=== PATIENT | male | born 1955 | race Caucasian/White ===

== ENCOUNTER → 2017-05-09 | Outpatient (CLI) | payer BC ==
--- NOTE | 2017-05-10 04:12 | REP ---
Clinical: Left lower extremity ulcer. Venous stasis. Technique: Wang scale and color Doppler evaluation using linear high frequency transducer followed by reflux evaluation. Findings: Ultrasound examination of the left lower extremity deep venous structures from the common femoral vein to the popliteal vein demonstrates normal compressibility flow and wave patterns in response to respiration and augmentation. There is no evidence for deep venous thrombosis. Evaluation for reflux demonstrates moderate reflux through the deep venous system including common femoral vein, superficial femoral vein and popliteal vein. Reflux identified through the greater saphenous vein including via large collateral vessel noted from the mid greater saphenous vein extending caudally to the mid medial calf. Reflux of the proximal greater saphenous vein at the saphenofemoral junction with a diameter of 13.6 mm and duration of 6.8 seconds. Reflux through the mid the greater saphenous vein with a diameter of 6.4 mm and duration of 6.2 seconds. Reflux through the distal greater saphenous vein at the knee with a diameter of 2.6 mm and duration of 4.1 seconds. Impression: No evidence for deep venous thrombosis. Reflux via the deep venous system as well as greater saphenous vein and collaterals as described above. Signed by Ricky Briceno MD 05/10/2017 04:04 A
== END ==
LOC: M RAD 09:59
PROVIDERS: ATTEND Surgery
DX: L97.822 Non-pressure chronic ulcer of other part of left lower leg with fat layer exposed (principal)

== ENCOUNTER → 2017-06-14 | Outpatient (CLI) | payer BC ==
--- NOTE | 2017-06-14 23:25 | ECGEPIP ---
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 Electronically Signed On 06-14-2017 23:24:31 EDT by Julio Soto
== END ==
LOC: M EKG 09:49
PROVIDERS: ATTEND Anesthesiology
DX: Z01.818 Encounter for other preprocedural examination (principal); R94.31 Abnormal electrocardiogram [ECG] [EKG]

== ENCOUNTER 2017-06-22 13:06 | Day surgery (SDC) | payer BC ==
[~2017-06-22] VITALS: Ht 193 cm; Wt 136.1 kg
[2017-06-22] MEDS ORDERED: LR 1,000 ML IV SCH ×3 (13:15→15:15)
[2017-06-22] MEDS ORDERED: LIDOCAINE W/EPINEPHRINE 1% 20ML VIAL As Ordered ONE (13:43)
[2017-06-22] MEDS ORDERED: LIDOCAINE 1% SDV INJ 30 ML VIAL As Ordered ONE (13:43)
[2017-06-22] MEDS ORDERED: MIDAZOLAM INJ 2 MG/2 ML VIAL (J2250) As Ordered ONE (14:22)
[2017-06-22] MEDS ORDERED: fentaNYL 100 MCG/2 ML INJECTION (J3010) As Ordered ONE (14:22)
[2017-06-22] MEDS ORDERED: PROPOFOL 500 MG/50 ML VIAL As Ordered ONE (14:22)
[2017-06-22] MEDS ORDERED: dexameTHASONE 4 MG/ML 1ML VIAL (J1100) As Ordered ONE (14:27)
[2017-06-22] MEDS ORDERED: KETOROLAC 60 MG/2 ML VIAL (J1885) As Ordered ONE (14:27)
[2017-06-22] MEDS ORDERED: ONDANSETRON 4MG/2ML VIAL (J2405) As Ordered ONE (14:30)
[2017-06-22] MEDS ORDERED: PROPOFOL 200 MG/20 ML VIAL As Ordered ONE (14:30)
[2017-06-22] MEDS ORDERED: ONDANSETRON 4MG/2ML VIAL (J2405) IV PRN (15:15)
[2017-06-22] MEDS ORDERED: fentaNYL 100 MCG/2 ML INJECTION (J3010) IV PRN (15:15)
[2017-06-22 15:40] VITALS: BP 138/89
--- NOTE | 2017-07-04 09:42 | RO ---
DATE OF PROCEDURE: 06/22/2017 PREOPERATIVE DIAGNOSES: Left lower extremity varicose veins. Left lower extremity valvular venous insufficiency. Nonhealing left lower extremity venous stasis ulcer. POSTOPERATIVE DIAGNOSES: Left lower extremity varicose veins. Left lower extremity valvular venous insufficiency. Nonhealing left lower extremity venous stasis ulcer. PROCEDURE: Left greater saphenous vein radiofrequency ablation. Ultrasound guided left greater saphenous vein cannulation. SURGEON: Dr. Gian Victor DRUG INSPECTOR: None. ANESTHESIA: Local MAC. ESTIMATED BLOOD LOSS: 20 mL. INTRAVENOUS FLUIDS: 400 mL. HEPARIN: None. COMPLICATIONS: None. DRAINS: None. SPECIMENS: None. IMPLANTS: None. INDICATION: The patient is a 62-year-old male with nonhealing left lower extremity venous stasis ulcer which has been slow to heal who underwent evaluation and was noted to have greater saphenous vein valvular insufficiency. The patient also has varicose veins in the left lower extremity which are small, but uncomfortable. The patient was evaluated and felt to be a good candidate for a left greater saphenous vein radiofrequency ablation. The risks, benefits and alternative treatment options were discussed with the patient. Benefits included, but were not limited to, relief of symptoms and increased potential for wound healing and prevention of future wounds in the left lower extremity secondary to his venous valvular insufficiency. Alternative treatment options included, but were not limited to, no intervention. Risks included, but were not limited to, infection, bleeding, renal failure requiring hemodialysis, burning or scarring of the skin, possible need for open surgical intervention, cerebrovascular accident, myocardial infarction, pulmonary embolus, deep vein thrombosis (DVT), loss of limb, loss of life, and poor outcome. Patient's questions were answered. The patient voices understanding of these risks, benefits and alternative treatment options. The patient accepts these risks and agrees to proceed with a left greater saphenous vein radiofrequency ablation. PROCEDURE: The patient was taken to the operating room and placed supine on the operating room table and the left lower extremity was prepped and draped in a standard surgical fashion. A time out was then conducted by myself and the team members in the room confirming the correct procedure, patient and laterality. The ultrasound was then used to identify the greater saphenous vein along the course of the left lower extremity and the ultrasound was used to guide cannulation of the left greater saphenous vein in the below knee region with concurrent real time ultrasound visualization of entry of the needle into the greater saphenous vein. The micropuncture wire was then advanced through the micropuncture needle. A hard copy image of the ultrasound guided cannulation was performed. The micropuncture needle was then up sized to a micropuncture sheath. A J-wire was advanced through the micropuncture sheath which was up sized to a 7 [place] sheath. The radiofrequency ablation catheter was advanced through the greater saphenous vein and placed 2 cm distal to the saphenofemoral junction under ultrasound guidance. Tumescent solution was then injected circumferential around the greater saphenous vein from the saphenofemoral junction to the entry site in the below knee region on the left lower extremity. After which, the greater saphenous vein was then ablated using the radiofrequency ablation catheter from 2 cm distal to the saphenofemoral junction to the entry site in the below knee region. Once this was completed, catheters and sheaths were removed, dressings were applied, and Edgar wrap was applied from the base of toes to the inguinal region. All instrument, sponge and needle counts were correct at the end of the case. There were no complications. Dr. Victor was present for and directed the entire case. The patient tolerated the procedure well and was transferred to the recover room and then subsequently discharged home in stable condition.
== END 2017-06-22 15:45 | disposition home or self-care (01) ==
LOC: M SDC 13:06
PROVIDERS: ATTEND Surgery Vascular Surgery
DX: I83.228 Varicose veins of left lower extremity with both ulcer of other part of lower extremity and inflammation (principal); L97.829 Non-pressure chronic ulcer of other part of left lower leg with unspecified severity; E66.9 Obesity, unspecified; F17.210 Nicotine dependence, cigarettes, uncomplicated; Z79.82 Long term (current) use of aspirin
CPT/HCPCS: 36475; J1100; J1885; J2250; J2405; J3010

== ENCOUNTER → 2017-07-05 | Outpatient (CLI) | payer BC ==
--- NOTE | 2017-07-05 08:27 | REP ---
Left lower extremity deep vein duplex ultrasound: The deep veins demonstrate normal compression, normal Doppler color flow and normal Doppler waveforms with respiration augmentation pulled levels from the popliteal vein to the common femoral vein. There is no deep vein thrombus in the left lower extremity. The the patient has had radio frequency ablation of the left greater saphenous vein. There is diffuse thrombus throughout the greater saphenous vein as a consequence. Signed by Emanuel Lancaster MD 07/05/2017 08:18 A
== END ==
LOC: M RAD 06:55
PROVIDERS: ATTEND Surgery Vascular Surgery
DX: I87.393 Chronic venous hypertension (idiopathic) with other complications of bilateral lower extremity (principal)

== ENCOUNTER → 2024-12-12 | Outpatient (CLI) | payer MEDICARE ==
[~2024-12-12] MED LIST: ECOT81TA5 PO
== END ==
LOC: M ONCR 13:34
PROVIDERS: ATTEND General Practice
DX: C44.42 Squamous cell carcinoma of skin of scalp and neck (principal); Z87.891 Personal history of nicotine dependence; Z72.89 Other problems related to lifestyle; Z79.82 Long term (current) use of aspirin

== ENCOUNTER → 2024-12-12 | Outpatient (REF) | payer MEDICARE | LOC: M SFHCDERM 08:32 | PROVIDERS: ATTEND Dermatology | DX: C44.42 Squamous cell carcinoma of skin of scalp and neck (principal) ==

== ENCOUNTER 2025-01-07 09:06 | Outpatient (RCR) | payer MEDICARE ==
[~2025-01-07 09:06] MED LIST changes: +TRIA1CR80 TOP
== END 2025-01-13 ==
LOC: M ONCR 09:06
PROVIDERS: ATTEND General Practice
DX: Z51.0 Encounter for antineoplastic radiation therapy (principal); C44.42 Squamous cell carcinoma of skin of scalp and neck

== ENCOUNTER → 2025-02-07 | Outpatient (CLI) | payer MEDICARE ==
[~2025-02-07] MED LIST changes: +BACT800T5 PO
== END ==
LOC: M ONCR 08:59
PROVIDERS: ATTEND General Practice
DX: S91.002A Unspecified open wound, left ankle, initial encounter (principal); L03.116 Cellulitis of left lower limb; C44.42 Squamous cell carcinoma of skin of scalp and neck; Y92.013 Bedroom of single-family (private) house as the place of occurrence of the external cause; Y93.9 Activity, unspecified; Y99.9 Unspecified external cause status

== ENCOUNTER → 2025-06-27 | Outpatient (CLI) | payer MEDICARE ==
[~2025-06-27] MED LIST changes: +DEXA4TA PO; +OXYC-517 PO
== END ==
LOC: M ONCR 13:09
PROVIDERS: ATTEND General Practice
DX: C44.42 Squamous cell carcinoma of skin of scalp and neck (principal); Z92.3 Personal history of irradiation; Z87.891 Personal history of nicotine dependence; Z72.89 Other problems related to lifestyle; Z79.82 Long term (current) use of aspirin
CPT/HCPCS: 11102; 42400; 87070; 87077; 87186; 88305; G0463

== ENCOUNTER → 2025-07-15 | Outpatient (CLI) | payer MEDICARE ==
[~2025-07-15] MED LIST changes: +AMOX875T2 PO; +CLEO300C2 PO; +DOXY100T PO; +KETO-204 PO; +ONDA-84 PO
== END ==
LOC: M PLARAD 14:40
PROVIDERS: ATTEND General Practice
DX: C44.42 Squamous cell carcinoma of skin of scalp and neck (principal)

== ENCOUNTER 2025-07-18 15:52 | Inpatient (IN) | payer MEDICARE ==
[~2025-07-18] VITALS: Ht 193 cm; Wt 122.0 kg
[~2025-07-18 15:52] MED LIST changes: -AMOX875T2 PO; -DOXY100T PO; -KETO-204 PO
[2025-07-18 16:48] VITALS: BP 126/82; TEMP 97.5; O2SAT 93
[2025-07-18] MEDS ORDERED: SENNA 8.6 MG TAB PO PRN (17:45)
[2025-07-18] MEDS ORDERED: MORPHINE 4 MG/ML 1 ML VIAL IV PRN (17:45)
[2025-07-18] MEDS: PANTOPRAZOLE 40MG VIAL IV SCH (18:26)
[2025-07-18] MEDS: MORPHINE 4 MG/ML 1 ML VIAL IV PRN (18:26)
[2025-07-18] MEDS: ACETAMINOPHEN *IV* 1,000 MG in IV 1 EA IV SCH (18:27)
[2025-07-18] MEDS: LR 1,000 ML IV SCH (18:27)
[2025-07-18] MEDS ORDERED: DEXA4TA PO (19:27)
[2025-07-18] MEDS ORDERED: OXYC-517 PO (19:27)
[2025-07-18] MEDS ORDERED: HOME MED LIST COMPLETE! XX SCH (19:30)
[2025-07-18 20:13] VITALS: BP 128/79; TEMP 97.7; O2SAT 93
[2025-07-18] MEDS: KETOROLAC 30 MG/ML 1 ML VIAL IV SCH (20:13)
[2025-07-19 04:20] VITALS: BP 110/54; TEMP 97.2; O2SAT 92
[2025-07-19 05:53] LABS: PLATELET COUNT, AUTOMATED 252 10^3/uL (150-450)
[2025-07-19 06:19] LABS: CALCIUM LEVEL 8.5 MG/DL (8.3-10.6); CARBON DIOXIDE LEVEL 28 MMOL/L (20-31); CHLORIDE LEVEL 96 MMOL/L (98-107); CREATININE FOR GFR 0.91 MG/DL (0.70-1.30); GLOMERULAR FILTRATION RATE > 90.0 (>49); POTASSIUM SERUM 4.2 MMOL/L (3.5-5.1); SODIUM LEVEL 131 MMOL/L (136-145)
[2025-07-19] MEDS: ENOXAPARIN 40 MG/0.4 ML SYRINGE (J1650 PER 10MG) SC SCH (10:35)
[2025-07-19 11:58] VITALS: BP 130/62; TEMP 97.2; O2SAT 93
[2025-07-19 13:11] LABS: ALT/SGPT 71 U/L (7.0-40); AST/SGOT 17 U/L (<34)
[2025-07-19 19:43] VITALS: BP 128/61; TEMP 97.9; O2SAT 95
[2025-07-19] MEDS ORDERED: MIRALAX *UNIT DOSE* 17 GM PACKET PO PRN (21:20)
[2025-07-19] MEDS ORDERED: ISOVUE-370 76% 100 ML VIAL As Ordered ONE (21:33)
[2025-07-19] MEDS: DOXYCYCLINE HYCLATE 100 MG TABLET PO SCH (22:32)
[2025-07-19] MEDS: AUGMENTIN 875 MG TAB PO SCH (22:32)
[2025-07-20 03:49] VITALS: BP 126/62; TEMP 97.7; O2SAT 91
[2025-07-20 06:31] LABS: PLATELET COUNT, AUTOMATED 287 10^3/uL (150-450)
[2025-07-20 06:56] LABS: CALCIUM LEVEL 7.9 MG/DL (8.3-10.6); CARBON DIOXIDE LEVEL 27 MMOL/L (20-31); CHLORIDE LEVEL 99 MMOL/L (98-107); CREATININE FOR GFR 0.85 MG/DL (0.70-1.30); GLOMERULAR FILTRATION RATE > 90.0 (>49); POTASSIUM SERUM 4.0 MMOL/L (3.5-5.1); SODIUM LEVEL 129 MMOL/L (136-145)
[2025-07-20 12:11] VITALS: BP 104/57; TEMP 97.3; O2SAT 91
[2025-07-20] MEDS ORDERED: KETO-204 PO (12:32)
[2025-07-20] MEDS ORDERED: AMOX875T2 PO (12:32)
[2025-07-20] MEDS ORDERED: DOXY100T PO (12:32)
[2025-07-23] MEDS ORDERED: ONDA-84 PO (09:26)
[2025-07-27] MEDS ORDERED: KETO-204 PO (11:50)
== END 2025-07-20 16:14 | disposition home or self-care (01) | DRG 948 ==
LOC: M MSPAV 16:30 → OBSVTOIN 17:43 → UNDODISIN 07-20 16:14
PROVIDERS: ADMIT Internal Medicine; ATTEND Student in an Organized Health Care Education/Training Program
DX: G89.3 Neoplasm related pain (acute) (chronic) (principal); C79.89 Secondary malignant neoplasm of other specified sites; C44.42 Squamous cell carcinoma of skin of scalp and neck; E86.0 Dehydration; Z79.899 Other long term (current) drug therapy; Z92.3 Personal history of irradiation

== ENCOUNTER → 2025-07-18 | Outpatient (CLI) | payer MEDICARE ==
[~2025-07-18] MED LIST changes: -CLEO300C2 PO; -ONDA-84 PO
[2025-07-18 16:00] VITALS: BP 122/80; O2SAT 94
[2025-07-18] MEDS: MORPHINE 4 MG/ML 1 ML VIAL IV ONE (16:15)
[2025-07-18 16:36] LABS: BASO # 0.0 10^3/uL (0.0-0.2); BASO % 0.1 % (0.0-1.0); EOS # 0.0 10^3/uL (0.0-0.5); EOS % 0.1 % (0.0-3.0); LYMPH # 1.8 10^3/uL (1.5-5.0); LYMPH % 11.9 % (24.0-44.0); MONO # 1.0 10^3/uL (0.0-0.8); MONO % 6.8 % (2.0-8.0); NEUTROPHILS # 12.1 10^3/uL (1.5-8.5); NEUTROPHILS % 80.1 % (36.0-66.0); PLATELET COUNT, AUTOMATED 271 10^3/uL (150-450)
[2025-07-18 16:40] VITALS: BP 122/80; O2SAT 94
[2025-07-18 17:13] LABS: LDH LACTATE DEHYDROGENASE 160 U/L (120-246)
[2025-07-18 17:14] LABS: ALT/SGPT 109 U/L (7.0-40); AST/SGOT 35 U/L (<34); CALCIUM LEVEL 9.1 MG/DL (8.3-10.6); CARBON DIOXIDE LEVEL 26 MMOL/L (20-31); CHLORIDE LEVEL 94 MMOL/L (98-107); CREATININE FOR GFR 0.91 MG/DL (0.70-1.30); FREE T4 0.94 NG/DL (0.89-1.76); GLOMERULAR FILTRATION RATE > 90.0 (>49); POTASSIUM SERUM 4.4 MMOL/L (3.5-5.1); SODIUM LEVEL 130 MMOL/L (136-145)
== END ==
LOC: M ONCR 14:41
PROVIDERS: ATTEND General Practice
DX: C44.42 Squamous cell carcinoma of skin of scalp and neck (principal); C77.0 Secondary and unspecified malignant neoplasm of lymph nodes of head, face and neck; G51.9 Disorder of facial nerve, unspecified; R52 Pain, unspecified; Z92.3 Personal history of irradiation; Z87.891 Personal history of nicotine dependence; Z72.89 Other problems related to lifestyle; Z79.82 Long term (current) use of aspirin; Z79.891 Long term (current) use of opiate analgesic

== ENCOUNTER → 2025-08-12 | Outpatient (CLI) | payer MEDICARE ==
[~2025-08-12] MED LIST changes: +AMOX875T2 PO; +DOXY100T PO; +KETO-204 PO; +ONDA-84 PO
== END ==
LOC: M ONCR 09:07
PROVIDERS: ATTEND General Practice
DX: C44.42 Squamous cell carcinoma of skin of scalp and neck (principal); Z92.3 Personal history of irradiation; Z79.620 Long term (current) use of immunosuppressive biologic; Z87.891 Personal history of nicotine dependence; Z72.89 Other problems related to lifestyle; Z79.899 Other long term (current) drug therapy

== ENCOUNTER → 2025-08-25 | Outpatient (CLI) | payer MEDICARE ==
[~2025-08-25] MED LIST changes: +CLEO300C2 PO
== END ==
LOC: M ONCR 12:49
PROVIDERS: ATTEND General Practice
DX: C44.42 Squamous cell carcinoma of skin of scalp and neck (principal); R59.0 Localized enlarged lymph nodes; Z92.21 Personal history of antineoplastic chemotherapy

== ENCOUNTER → 2025-09-23 | Outpatient (CLI) | payer MEDICARE | LOC: M ONCR 12:57 | PROVIDERS: ATTEND General Practice | DX: C44.42 Squamous cell carcinoma of skin of scalp and neck (principal); C77.0 Secondary and unspecified malignant neoplasm of lymph nodes of head, face and neck; Z92.3 Personal history of irradiation; Z87.891 Personal history of nicotine dependence; Z79.899 Other long term (current) drug therapy ==